=== PATIENT | female | born 1960 | race Caucasian/White ===

== ENCOUNTER 2018-09-17 21:25 | Emergency (ER) | payer MEDICARE, MEDICAID ==
[~2018-09-17] VITALS: Ht 167.6 cm; Wt 68.0 kg
[~2018-09-17 21:25] MED LIST: ALBU18HF2 INH; ALBU6.7H INH; ALBU8.5H4 IH; AZIT250T PO; DIPH25CA83 PO; DOXY100C76 PO; DOXY50CA2 PO; ESOM20CA PO; GABA-330 PO; GUAI120015 PO; GUAI1TBM19 PO; NAPR-56 PO; ONDA4TAB59 PO; PHEN-786 PO; PSEU-259 PO; TRAZ-91 PO
[2018-09-17 21:31] VITALS: BP 154/97
[2018-09-17] MEDS ORDERED: GUAI473S11 PO (21:47)
[2018-09-17] MEDS ORDERED: ALBU8HFA PO (21:47)
== END 2018-09-17 22:13 | disposition home or self-care (01) ==
LOC: ER 21:26
DX: J20.9 Acute bronchitis, unspecified (principal); J44.9 Chronic obstructive pulmonary disease, unspecified; K21.9 Gastro-esophageal reflux disease without esophagitis; F15.90 Other stimulant use, unspecified, uncomplicated; Z90.49 Acquired absence of other specified parts of digestive tract; Z98.890 Other specified postprocedural states; Z87.891 Personal history of nicotine dependence; Z86.14 Personal history of Methicillin resistant Staphylococcus aureus infection; Z59.0 Homelessness; Z88.0 Allergy status to penicillin; Z79.899 Other long term (current) drug therapy
CPT/HCPCS: 99283

== ENCOUNTER 2018-11-16 10:02 | Emergency (ER) | payer MEDICARE, MEDICAID ==
[~2018-11-16] VITALS: Ht 170.2 cm; Wt 59.1 kg
[2018-11-16 10:15] VITALS: BP 156/96
[2018-11-16] MEDS ORDERED: CLIN150C2 PO (11:53)
[2018-11-16] MEDS ORDERED: BACI1PAC7 TP (11:53)
== END 2018-11-16 12:00 | disposition home or self-care (01) ==
LOC: ER 10:03
DX: J34.0 Abscess, furuncle and carbuncle of nose (principal); J44.9 Chronic obstructive pulmonary disease, unspecified; F12.90 Cannabis use, unspecified, uncomplicated; K21.9 Gastro-esophageal reflux disease without esophagitis; Z86.19 Personal history of other infectious and parasitic diseases; Z86.14 Personal history of Methicillin resistant Staphylococcus aureus infection; Z86.69 Personal history of other diseases of the nervous system and sense organs; Z90.49 Acquired absence of other specified parts of digestive tract; Z98.890 Other specified postprocedural states; Z59.0 Homelessness; Z88.0 Allergy status to penicillin; Z79.2 Long term (current) use of antibiotics; Z79.899 Other long term (current) drug therapy
CPT/HCPCS: 99283

== ENCOUNTER 2020-05-04 15:26 | Emergency (ER) | payer MEDICARE, MEDICAID ==
[~2020-05-04] VITALS: Ht 167.6 cm; Wt 65.9 kg
[~2020-05-04 15:26] MED LIST changes: -ALBU6.7H INH; +ALBU6.7H9 INH
[2020-05-04 15:33] VITALS: BP 163/106
[2020-05-04] MEDS ORDERED: SULF1TAB49 PO (15:59)
[2020-05-07] MEDS ORDERED: BACDS PO (04:26)
[2020-05-07] MEDS ORDERED: IBUP-1984 PO (04:29)
[2020-05-07] MEDS ORDERED: GABA300C PO (08:39)
[2020-05-09] MEDS ORDERED: CLIN-5 PO (09:47)
[2020-05-09] MEDS ORDERED: HYDR-4383 PO (09:48)
== END 2020-05-04 16:40 | disposition home or self-care (01) ==
LOC: ER 15:26
DX: S60.321A Blister (nonthermal) of right thumb, initial encounter (principal); M79.644 Pain in right finger(s); M79.89 Other specified soft tissue disorders; J45.909 Unspecified asthma, uncomplicated; J44.9 Chronic obstructive pulmonary disease, unspecified; K21.9 Gastro-esophageal reflux disease without esophagitis; F32.9 Major depressive disorder, single episode, unspecified; F15.90 Other stimulant use, unspecified, uncomplicated; Z86.69 Personal history of other diseases of the nervous system and sense organs; Z86.19 Personal history of other infectious and parasitic diseases; Z86.14 Personal history of Methicillin resistant Staphylococcus aureus infection; Z90.89 Acquired absence of other organs; Z98.890 Other specified postprocedural states; Z59.0 Homelessness; Z88.0 Allergy status to penicillin; Z79.2 Long term (current) use of antibiotics; Z79.899 Other long term (current) drug therapy; X58.XXXA Exposure to other specified factors, initial encounter; Y93.89 Activity, other specified; Y92.89 Other specified places as the place of occurrence of the external cause; Y99.8 Other external cause status
CPT/HCPCS: 10160; 99284

== ENCOUNTER 2020-05-25 14:16 | Emergency (ER) | payer MEDICARE, MEDICAID ==
[~2020-05-25] VITALS: Ht 167.6 cm; Wt 60.0 kg
[~2020-05-25 14:16] MED LIST changes: -ALBU18HF2 INH; -ALBU6.7H9 INH; -ALBU8.5H4 IH; -AZIT250T PO; -DIPH25CA83 PO; -DOXY100C76 PO; -DOXY50CA2 PO; -ESOM20CA PO; -GABA-330 PO; +GABA300C PO; -GUAI120015 PO; -GUAI1TBM19 PO; +HYDR-4383 PO; +IBUP-1984 PO; -NAPR-56 PO; -ONDA4TAB59 PO; -PHEN-786 PO; -PSEU-259 PO; -TRAZ-91 PO
[2020-05-25 14:23] VITALS: BP 149/92
[2020-05-25] MEDS ORDERED: ERYT1OIN6 RIGHTEYE (14:45)
== END 2020-05-25 14:51 | disposition home or self-care (01) ==
LOC: ER 14:16
DX: H00.012 Hordeolum externum right lower eyelid (principal); R10.84 Generalized abdominal pain; J45.909 Unspecified asthma, uncomplicated; J44.9 Chronic obstructive pulmonary disease, unspecified; K21.9 Gastro-esophageal reflux disease without esophagitis; F32.9 Major depressive disorder, single episode, unspecified; F15.90 Other stimulant use, unspecified, uncomplicated; Z86.69 Personal history of other diseases of the nervous system and sense organs; Z86.19 Personal history of other infectious and parasitic diseases; Z86.14 Personal history of Methicillin resistant Staphylococcus aureus infection; Z90.89 Acquired absence of other organs; Z98.890 Other specified postprocedural states; Z72.89 Other problems related to lifestyle; Z59.0 Homelessness; Z88.0 Allergy status to penicillin; Z79.2 Long term (current) use of antibiotics; Z79.899 Other long term (current) drug therapy
CPT/HCPCS: 99283

== ENCOUNTER 2020-06-04 16:36 | Emergency (ER) | payer MEDICARE, MEDICAID ==
[~2020-06-04] VITALS: Ht 167.6 cm; Wt 65.9 kg
[2020-06-04 17:29] LABS: BASOPHILS # (AUTO) 0.1 X10'3 (0-0.2); BASOPHILS % (AUTO) 1.1 % (0-1); EOSINOPHILS # (AUTO) 0.2 X10'3 (0-0.9); EOSINOPHILS % (AUTO) 2.6 % (0-6); HEMATOCRIT 40.3 % (35.0-45.0); HEMOGLOBIN 13.5 g/dl (12.0-16.0); LYMPHOCYTES % (AUTO) 25.8 % (21-51); MEAN CORPUSCULAR HEMOGLOBIN 29.1 PG (27.0-31.0); MEAN CORPUSCULAR HGB CONC 33.4 g/dL (33.0-36.5); MEAN CORPUSCULAR VOLUME 86.9 FL (78-98); MEAN PLATELET VOLUME 8.1 FL (7.4-10.4); MONOCYTES # (AUTO) 0.5 X10'3 (0-0.9); NEUTROPHILS # (AUTO) 4.8 X10'3 (1.8-7.7); NEUTROPHILS % (AUTO) 63.5 % (42-75); PLATELET COUNT 304 X10'3 (140-440); RED BLOOD COUNT 4.63 X10'6 (4.20-5.60); RED CELL DISTRIBUTION WIDTH 14.7 % (11.5-14.5); WHITE BLOOD COUNT 7.6 X10'3 (4.5-11.0)
[2020-06-04 17:44] LABS: ALANINE AMINOTRANSFERASE 21 U/L (12-78); ALBUMIN 3.8 G/DL (3.4-5.0); ALBUMIN/GLOBULIN RATIO 1.1 (1.1-1.5); ALKALINE PHOSPHATASE 93 IU/L (46-116); ANION GAP 8 (8-16); ASPARTATE AMINO TRANSFERASE 16 U/L (10-37); BILIRUBIN,TOTAL 0.3 MG/DL (0.1-1.0); BLOOD UREA NITROGEN 17 MG/DL (7-18); BUN/CREATININE RATIO 18.5 (6.6-38.0); CHLORIDE 107 MMOL/L (99-107); CREATININE 0.92 MG/DL (0.40-0.90); GLUCOSE 112 MG/DL (70-104); POTASSIUM 3.7 MMOL/L (3.5-5.1); SODIUM 141 MMOL/L (135-145); TOTAL CARBON DIOXIDE 26.3 MMOL/L (24-32); TOTAL PROTEIN 7.3 G/DL (6.4-8.2); eGFR 62 ML/MIN
[2020-06-04] MEDS ORDERED: LORazepam 2 mg/ml vial IV ONE (18:00)
[2020-06-04 18:21] LABS: D-DIMER 0.24 MG/L FEU (0-0.50)
[2020-06-04] MEDS ORDERED: CEPH250T PO (18:55)
[2020-06-04 19:07] VITALS: BP 143/90
== END 2020-06-04 19:13 | disposition home or self-care (01) ==
LOC: ER 16:36
DX: F41.9 Anxiety disorder, unspecified (principal); R06.02 Shortness of breath; R07.89 Other chest pain; R00.2 Palpitations; J44.9 Chronic obstructive pulmonary disease, unspecified; K21.9 Gastro-esophageal reflux disease without esophagitis; F32.9 Major depressive disorder, single episode, unspecified; F15.90 Other stimulant use, unspecified, uncomplicated; Z86.69 Personal history of other diseases of the nervous system and sense organs; Z86.14 Personal history of Methicillin resistant Staphylococcus aureus infection; Z90.89 Acquired absence of other organs; Z90.49 Acquired absence of other specified parts of digestive tract; Z59.0 Homelessness; Z88.0 Allergy status to penicillin; Z79.899 Other long term (current) drug therapy
CPT/HCPCS: 36415; 71045; 80053; 83880; 84484; 85025; 85379; 93005; 96374; 99285; J2060

== ENCOUNTER 2020-09-20 17:13 | Emergency (ER) | payer MEDICARE, MEDICAID ==
[~2020-09-20] VITALS: Ht 167.6 cm; Wt 70.0 kg
[2020-09-20 17:17] VITALS: BP 137/117
[2020-09-20] MEDS ORDERED: DOXYCYCLINE 100MG CAPSULE PO STA (18:26)
[2020-09-20] MEDS ORDERED: mupirocin 2% ointment 22GM TP STA (18:26)
[2020-09-20] MEDS ORDERED: DOXY100C2 PO (18:32)
== END 2020-09-20 19:13 | disposition home or self-care (01) ==
LOC: ER 17:13
DX: L08.89 Other specified local infections of the skin and subcutaneous tissue (principal); F15.90 Other stimulant use, unspecified, uncomplicated; I10 Essential (primary) hypertension; J44.9 Chronic obstructive pulmonary disease, unspecified; K21.9 Gastro-esophageal reflux disease without esophagitis; Z86.14 Personal history of Methicillin resistant Staphylococcus aureus infection; Z86.69 Personal history of other diseases of the nervous system and sense organs; Z90.49 Acquired absence of other specified parts of digestive tract; Z98.891 History of uterine scar from previous surgery; Z90.89 Acquired absence of other organs; Z72.89 Other problems related to lifestyle; Z88.0 Allergy status to penicillin; Z79.2 Long term (current) use of antibiotics; Z79.899 Other long term (current) drug therapy
CPT/HCPCS: 99283

== ENCOUNTER 2021-10-30 17:03 | Emergency (ER) | payer MEDICARE, MEDICAID ==
[~2021-10-30] VITALS: Ht 167.6 cm; Wt 70.0 kg
[2021-10-30 17:26] VITALS: BP 160/121
== END 2021-10-30 20:28 | disposition left against medical advice (07) ==
LOC: EDUNIT# 17:03 → ER 17:06
DX: S41.152A Open bite of left upper arm, initial encounter (principal); Z53.21 Procedure and treatment not carried out due to patient leaving prior to being seen by health care provider; W64.XXXA Exposure to other animate mechanical forces, initial encounter; Y93.89 Activity, other specified; Y92.89 Other specified places as the place of occurrence of the external cause; Y99.8 Other external cause status

== ENCOUNTER 2022-05-07 16:38 | Emergency (ER) | payer MEDICARE, MEDICAID ==
[~2022-05-07] VITALS: Ht 162.6 cm; Wt 54.5 kg
[2022-05-07 16:52] VITALS: BP 155/110
[2022-05-07] MEDS ORDERED: LIDOcaine 1% W/epiNEPHrine 1:100,000 20ml vial SQ ONE (16:55)
[2022-05-07] MEDS ORDERED: TETanus/Pertussis (Acell)/Diphther VAC/PF (Tdap-Adult) 0.5ml syringe IMVAC ONE (16:55)
[2022-05-07] MEDS ORDERED: acetaminophen 325mg tablet PO ONE (19:45)
[2022-05-13] MEDS ORDERED: ACET-1008 PO (14:50)
[2022-05-13] MEDS ORDERED: IBUP-1984 PO (14:50)
[2022-05-13] MEDS ORDERED: LINE600T14 PO ×2 (15:17)
[2022-05-13] MEDS ORDERED: RIFA200T2 PO ×2 (16:46)
[2022-05-13] MEDS ORDERED: LEVO500T90 PO (16:46)
[2022-05-13] MEDS ORDERED: SULF1TAB49 PO (17:01)
== END 2022-05-07 22:12 | disposition home or self-care (01) ==
LOC: ER 16:39
DX: S51.812A Laceration without foreign body of left forearm, initial encounter (principal); J44.9 Chronic obstructive pulmonary disease, unspecified; F15.90 Other stimulant use, unspecified, uncomplicated; K21.9 Gastro-esophageal reflux disease without esophagitis; Z86.19 Personal history of other infectious and parasitic diseases; Z86.14 Personal history of Methicillin resistant Staphylococcus aureus infection; Z90.49 Acquired absence of other specified parts of digestive tract; Z72.89 Other problems related to lifestyle; Z59.00 Homelessness unspecified; Z98.891 History of uterine scar from previous surgery; Z88.0 Allergy status to penicillin; Z79.899 Other long term (current) drug therapy; W01.198A Fall on same level from slipping, tripping and stumbling with subsequent striking against other object, initial encounter; Y93.01 Activity, walking, marching and hiking; Y92.89 Other specified places as the place of occurrence of the external cause; Y99.8 Other external cause status
CPT/HCPCS: 12002; 90471; 90715; 99283; J7030; A6258; A6449

== ENCOUNTER 2022-06-05 20:08 | Emergency (ER) | payer MEDICARE, MEDICAID ==
[~2022-06-05] VITALS: Ht 167.6 cm; Wt 63.6 kg
[~2022-06-05 20:08] MED LIST changes: -GABA300C PO; -HYDR-4383 PO; -IBUP-1984 PO; +LEVO-65 PO; +SULF1TAB49 PO
[2022-06-05 20:49] LABS: BASOPHILS % (AUTO) 0.4 % (0-1); EOSINOPHILS # (AUTO) 0.3 X10'3 (0-0.9); EOSINOPHILS % (AUTO) 2.6 % (0-6); HEMATOCRIT 42.7 % (35.0-45.0); HEMOGLOBIN 14.5 g/dl (12.0-16.0); LYMPHOCYTES # (AUTO) 2.1 X10'3 (1.1-4.8); LYMPHOCYTES % (AUTO) 20.8 % (21-51); MEAN CORPUSCULAR HEMOGLOBIN 28.5 PG (27.0-31.0); MEAN PLATELET VOLUME 7.6 FL (7.4-10.4); MONOCYTES # (AUTO) 0.9 X10'3 (0-0.9); MONOCYTES % (AUTO) 8.3 % (2-12); NEUTROPHILS # (AUTO) 6.9 X10'3 (1.8-7.7); NEUTROPHILS % (AUTO) 67.9 % (42-75); PLATELET COUNT 356 X10'3 (140-440); RED BLOOD COUNT 5.09 X10'6 (4.20-5.60); RED CELL DISTRIBUTION WIDTH 14.7 % (11.5-14.5); WHITE BLOOD COUNT 10.2 X10'3 (4.5-11.0)
[2022-06-05 20:55] LABS: CLARITY,URINE CLEAR (Clear); COLOR,URINE YELLOW (Yellow); GLUCOSE, URINE NEGATIVE (Neg); KETONES,URINE NEGATIVE (Neg); LEUKOCYTE ESTERASE ,URINE NEGATIVE (Neg); NITRITES, URINE NEGATIVE (Neg); OCCULT BLOOD,URINE NEGATIVE (Neg); PROTEIN,URINE NEGATIVE (Neg); UROBILINOGEN,URINE 0.2 E.U/dL (0.2-1.0)
[2022-06-05 21:05] LABS: ALANINE AMINOTRANSFERASE 26 U/L (12-78); ALBUMIN 3.8 G/DL (3.4-5.0); ALKALINE PHOSPHATASE 112 IU/L (46-116); ANION GAP 13 (8-16); ASPARTATE AMINO TRANSFERASE 24 U/L (10-37); BILIRUBIN,TOTAL 0.4 MG/DL (0.1-1.0); BLOOD UREA NITROGEN 26 MG/DL (7-18); CALCIUM 9.4 MG/DL (8.5-10.1); CHLORIDE 104 MMOL/L (99-107); GLUCOSE 123 MG/DL (70-104); LIPASE 95 U/L (73-393); POTASSIUM 3.4 MMOL/L (3.5-5.1); SODIUM 140 MMOL/L (135-145); TOTAL CARBON DIOXIDE 22.9 MMOL/L (24-32); TOTAL PROTEIN 7.5 G/DL (6.4-8.2); eGFR 41 ML/MIN
[2022-06-05 21:07] LABS: UA COLLECTION TYPE STRAIGHT CATH
[2022-06-05] MEDS ORDERED: lactulose 20gm/30ml cup PO ONE (22:30)
[2022-06-05] MEDS ORDERED: magnesium hydroxide 30ml (MOM) UD suspension PO ONE (22:30)
[2022-06-05] MEDS ORDERED: ketorolac trometh inj. 60 MG/2 ML VIAL IM ONE (23:00)
[2022-06-05] MEDS ORDERED: normal saline 1000ML IV soln IVB ONE (23:35)
[2022-06-06 02:03] VITALS: BP 112/75
--- NOTE | 2022-06-06 02:15 | NUR ---
PT UNCOOPERATIVE W/VS MONITOR. REMOVES EQUIPMENT EVERY TIME NURSE LEAVES THE ROOM
== END 2022-06-06 06:03 | disposition home or self-care (01) ==
LOC: ER 20:08
DX: K59.00 Constipation, unspecified (principal); J44.9 Chronic obstructive pulmonary disease, unspecified; K21.9 Gastro-esophageal reflux disease without esophagitis; F32.A Depression, unspecified; I10 Essential (primary) hypertension; Z90.49 Acquired absence of other specified parts of digestive tract; F12.10 Cannabis abuse, uncomplicated; Z59.00 Homelessness unspecified; Z88.0 Allergy status to penicillin; Z79.899 Other long term (current) drug therapy; Z79.2 Long term (current) use of antibiotics
CPT/HCPCS: 36415; 74176; 80053; 81003; 83690; 85025; 96360; 96361; 96372; 99284; C1758; J1885; J7030; A4314; A4338

== ENCOUNTER 2022-06-07 07:36 | Emergency (ER) | payer MEDICARE, MEDICAID ==
[~2022-06-07] VITALS: Ht 167.6 cm; Wt 63.6 kg
[2022-06-07 07:39] VITALS: BP 129/84
[2022-06-07] MEDS ORDERED: normal saline 1000ML IV soln IVB ONE (08:00)
[2022-06-07 08:25] LABS: BASOPHILS % (AUTO) 0.1 % (0-1); EOSINOPHILS % (AUTO) 0.1 % (0-6); HEMATOCRIT 41.6 % (35.0-45.0); HEMOGLOBIN 13.7 g/dl (12.0-16.0); MEAN CORPUSCULAR HGB CONC 32.9 g/dL (33.0-36.5); MEAN CORPUSCULAR VOLUME 85.3 FL (78-98); MEAN PLATELET VOLUME 8.2 FL (7.4-10.4); MONOCYTES % (AUTO) 11.7 % (2-12); NEUTROPHILS # (AUTO) 13.9 X10'3 (1.8-7.7); NEUTROPHILS % (AUTO) 82.1 % (42-75); PLATELET COUNT 220 X10'3 (140-440); RED BLOOD COUNT 4.88 X10'6 (4.20-5.60); RED CELL DISTRIBUTION WIDTH 14.9 % (11.5-14.5); WHITE BLOOD COUNT 16.9 X10'3 (4.5-11.0)
[2022-06-07 08:51] LABS: ALANINE AMINOTRANSFERASE 30 U/L (12-78); ALBUMIN 3.2 G/DL (3.4-5.0); ALBUMIN/GLOBULIN RATIO 0.9 (1.1-1.5); ALKALINE PHOSPHATASE 86 IU/L (46-116); ANION GAP 11 (8-16); ASPARTATE AMINO TRANSFERASE 30 U/L (10-37); BILIRUBIN,TOTAL 0.6 MG/DL (0.1-1.0); BLOOD UREA NITROGEN 39 MG/DL (7-18); BUN/CREATININE RATIO 30.5 (6.6-38.0); CALCIUM 8.6 MG/DL (8.5-10.1); CHLORIDE 105 MMOL/L (99-107); CREATININE 1.28 MG/DL (0.40-0.90); GLUCOSE 108 MG/DL (70-104); MAGNESIUM 2.4 MG/DL (1.5-2.4); POTASSIUM 3.6 MMOL/L (3.5-5.1); SODIUM 137 MMOL/L (135-145); TOTAL CARBON DIOXIDE 20.8 MMOL/L (24-32); TOTAL PROTEIN 6.8 G/DL (6.4-8.2); eGFR 42 ML/MIN
--- NOTE | 2022-06-07 10:42 | NUR ---
Awaiting social work program coordinator consult.
== END 2022-06-07 11:48 | disposition home or self-care (01) ==
LOC: ER 07:36
DX: R19.7 Diarrhea, unspecified (principal); I10 Essential (primary) hypertension; J44.9 Chronic obstructive pulmonary disease, unspecified; F15.20 Other stimulant dependence, uncomplicated; K21.9 Gastro-esophageal reflux disease without esophagitis; Z59.00 Homelessness unspecified; Z88.0 Allergy status to penicillin; Z98.890 Other specified postprocedural states
CPT/HCPCS: 36415; 80053; 83735; 85025; 99283; J7030

== ENCOUNTER 2022-09-30 12:21 | Emergency (ER) | payer MEDICARE, MEDICAID ==
[~2022-09-30] VITALS: Ht 167.6 cm; Wt 65.0 kg
[2022-09-30 12:38] VITALS: BP 155/104
[2022-09-30] MEDS ORDERED: dexamethasone sod phosphate 10mg/ml inj PO STA (14:45)
[2022-09-30] MEDS ORDERED: AZIT-83 PO (15:48)
[2022-09-30] MEDS ORDERED: BENZ-38 PO (15:48)
[2022-09-30] MEDS ORDERED: azithromycin 250mg tablet PO ONE (15:50)
== END 2022-09-30 16:08 | disposition home or self-care (01) ==
LOC: ER 12:22
DX: J20.9 Acute bronchitis, unspecified (principal); K21.9 Gastro-esophageal reflux disease without esophagitis; I10 Essential (primary) hypertension; Z86.14 Personal history of Methicillin resistant Staphylococcus aureus infection; F32.A Depression, unspecified; Z88.0 Allergy status to penicillin; Z79.899 Other long term (current) drug therapy
CPT/HCPCS: 71045; 99283; J1100

== ENCOUNTER 2024-06-12 19:07 | Emergency (ER) | payer MEDICARE, MEDICAID ==
[~2024-06-12] VITALS: Ht 167.6 cm; Wt 62.7 kg
[2024-06-12 19:16] VITALS: BP 147/85; PULSE 104; TEMP 98.3; O2SAT 97
[2024-06-12 21:39] VITALS: RESP 15
[2024-06-12] MEDS: ketorolac trometh 15mg/ml vial 15 MG/ML ML IM ONE (21:39)
[2024-06-12] MEDS: HYDROcodone/acetaminophen 5mg/325mg tablet PO ONE (21:40)
== END 2024-06-12 21:51 | disposition home or self-care (01) ==
LOC: ER 19:08
DX: M25.572 Pain in left ankle and joints of left foot (principal); F15.90 Other stimulant use, unspecified, uncomplicated; I10 Essential (primary) hypertension; J45.909 Unspecified asthma, uncomplicated; J44.9 Chronic obstructive pulmonary disease, unspecified; K21.9 Gastro-esophageal reflux disease without esophagitis; F32.A Depression, unspecified; Z88.0 Allergy status to penicillin; Z90.49 Acquired absence of other specified parts of digestive tract; Z98.890 Other specified postprocedural states; Z59.00 Homelessness unspecified
CPT/HCPCS: 73610; 96372; 99283; J1885

== ENCOUNTER 2024-08-02 07:29 | Emergency (ER) | payer MEDICARE, MEDICAID ==
[~2024-08-02] VITALS: Ht 167.6 cm; Wt 68.0 kg
[2024-08-02 07:49] VITALS: BP 152/79; PULSE 84; RESP 16; O2SAT 97
[2024-08-02] MEDS ORDERED: ipratropium/albuterol 3ml nebule NEB PRN (08:30)
[2024-08-02] MEDS ORDERED: BENZ-38 PO (09:37)
[2024-08-02 09:43] VITALS: TEMP 98.1
== END 2024-08-02 09:45 | disposition home or self-care (01) ==
LOC: ER 07:29
DX: R05.3 Chronic cough (principal); J44.89 Other specified chronic obstructive pulmonary disease; K21.9 Gastro-esophageal reflux disease without esophagitis; I10 Essential (primary) hypertension; Z88.0 Allergy status to penicillin; Z90.49 Acquired absence of other specified parts of digestive tract; Z90.89 Acquired absence of other organs
CPT/HCPCS: 71045; 99283

== ENCOUNTER 2024-09-22 08:04 | Emergency (ER) | payer MEDICARE, MEDICAID ==
[~2024-09-22] VITALS: Ht 167.6 cm; Wt 67.7 kg
[2024-09-22 08:08] VITALS: TEMP 97.3
[2024-09-22 08:59] LABS: STREP A SCREEN NEGATIVE (Neg)
[2024-09-22] MEDS ORDERED: ALBU8HFA IH (09:08)
[2024-09-22] MEDS ORDERED: PRED20TA PO (09:08)
[2024-09-22] MEDS ORDERED: AZIT500T2 PO (09:08)
[2024-09-22 09:21] VITALS: BP 170/89; PULSE 78; RESP 20; O2SAT 94
[2024-09-22] MEDS: predniSONE 20 mg tablet PO ONE (09:26)
[2024-09-22] MEDS: azithromycin 250mg tablet PO ONE (09:26)
== END 2024-09-22 09:50 | disposition home or self-care (01) ==
LOC: ER 08:05
DX: J20.9 Acute bronchitis, unspecified (principal); J44.0 Chronic obstructive pulmonary disease with (acute) lower respiratory infection; F17.200 Nicotine dependence, unspecified, uncomplicated; I10 Essential (primary) hypertension; K21.9 Gastro-esophageal reflux disease without esophagitis; F32.A Depression, unspecified; F15.90 Other stimulant use, unspecified, uncomplicated; F19.11 Other psychoactive substance abuse, in remission; Z20.822 Contact with and (suspected) exposure to COVID-19; Z88.0 Allergy status to penicillin; Z90.49 Acquired absence of other specified parts of digestive tract; Z90.89 Acquired absence of other organs; Z98.890 Other specified postprocedural states
CPT/HCPCS: 36415; 71045; 87081; 87811; 87880; 99284; J7512

== ENCOUNTER 2024-10-09 01:28 | Emergency (ER) | payer MEDICARE, MEDICAID ==
[~2024-10-09] VITALS: Ht 167.6 cm; Wt 70.4 kg
[~2024-10-09 01:28] MED LIST changes: +ALBU8HFA IH; -LEVO-65 PO; +PRED20TA PO; -SULF1TAB49 PO
[2024-10-09 01:31] VITALS: TEMP 97.9
[2024-10-09] MEDS ORDERED: LISI5TAB22 PO (01:36)
[2024-10-09] MEDS ORDERED: CEFU250T95 PO (01:36)
[2024-10-09] MEDS ORDERED: BENZ-38 PO (02:21)
[2024-10-09] MEDS: ipratropium/albuterol 3ml nebule NEB PRN (02:41)
[2024-10-09 02:43] VITALS: PULSE 78; RESP 20; O2SAT 93
[2024-10-09 02:47] VITALS: PULSE 73; RESP 20; O2SAT 99
[2024-10-09 03:13] VITALS: BP 144/83; PULSE 97; RESP 20; O2SAT 93
== END 2024-10-09 03:13 | disposition home or self-care (01) ==
LOC: ER 01:29
DX: J44.0 Chronic obstructive pulmonary disease with (acute) lower respiratory infection (principal); J20.9 Acute bronchitis, unspecified; I10 Essential (primary) hypertension; K21.9 Gastro-esophageal reflux disease without esophagitis; F32.A Depression, unspecified; F17.200 Nicotine dependence, unspecified, uncomplicated; F15.90 Other stimulant use, unspecified, uncomplicated; Z90.49 Acquired absence of other specified parts of digestive tract; Z90.89 Acquired absence of other organs; Z88.0 Allergy status to penicillin; Z59.00 Homelessness unspecified
CPT/HCPCS: 94640; 99283

== ENCOUNTER 2024-12-28 13:45 | Emergency (ER) | payer MEDICARE, MEDICAID ==
[~2024-12-28] VITALS: Ht 167.6 cm; Wt 70.0 kg
[~2024-12-28 13:45] MED LIST changes: +CEFU250T95 PO; +LISI5TAB22 PO
[2024-12-28 13:57] VITALS: BP 191/92; PULSE 78; RESP 16; O2SAT 95
[2024-12-28] MEDS ORDERED: CLIN-142 PO (14:48)
[2024-12-28] MEDS: clindamycin 150mg capsule PO ONE (15:49)
[2024-12-28] MEDS: ibuprofen tablet 400 MG TABLET PO ONE (15:49)
[2024-12-28 16:00] VITALS: TEMP 97.4
== END 2024-12-28 16:01 | disposition home or self-care (01) ==
LOC: ER 13:46
DX: L03.211 Cellulitis of face (principal); I10 Essential (primary) hypertension; J44.9 Chronic obstructive pulmonary disease, unspecified; F32.A Depression, unspecified; F15.90 Other stimulant use, unspecified, uncomplicated; Z88.0 Allergy status to penicillin; Z90.89 Acquired absence of other organs; Z98.890 Other specified postprocedural states
CPT/HCPCS: 99283

== ENCOUNTER 2025-02-18 13:09 | Emergency (ER) | payer MEDICARE, MEDICAID ==
[~2025-02-18] VITALS: Ht 167.6 cm; Wt 66.6 kg
[2025-02-18 13:11] VITALS: TEMP 97.1
--- NOTE | 2025-02-18 14:07 | Physician Documentation ---
History of Present Illness ~ Chief Complaint: Foreign body Stated Complaint: SPLINTERS COMING OUT OF LIP Time Seen by MD: 13:53 Primary Medical Doctor: JOSH FISHER This is a 64-year-old female who presents with �itching of lip� to left upper external lip, patient feels that she may have gotten a splinter in the area one year ago and believes it may be coming out, patient reports the itching began this morning. Patient reports no history of herpes simplex though reports history of psoriasis. Medication Reconciliation Allergies: Coded Allergies: Penicillins (Verified Allergy, Unknown, 02/18/25) Scheduled Cefuroxime Axetil (Cefuroxime), 1 TAB PO BID, (Reported) Lisinopril (Lisinopril), 1 TAB PO DAILY, (Reported) Prednisone* (Prednisone*), 3 TAB PO DAILY Scheduled PRN albuterol inhaler (Pro-Air Inhaler), 2 BOTTLE IH 5XD PRN for SOB or wheezing Past Medical History Past Medical History: Seizures, Hypertension, Asthma, COPD, GERD, Hepatitis C, Cellulitis, MRSA Abscess, Depression Past Surgical History: appendectomy, , tonsillectomy Patient History: FH: alcoholism FATHER Brother Paternal grandfather FH: brain cancer Brother FH: breast cancer Maternal grandmother FH: kidney cancer MOTHER Alcohol Use: Rarely Drug Use: methamphetamine Lives In: Homeless Review of Systems ROS Itching to lip as stated above in the HPI, otherwise all systems are reviewed and negative. Physical Exam Vital Signs: Temperature: 97.1, Source: Temporal, Heart Rate: 90, Respiratory Rate: 18, BP: 166/101, Pulse Oximetry: 98, Weight: 66.560 Physical Exam VITALS: Reviewed and as above. GENERAL: Alert, nontoxic appearing, no apparent distress. HEENT: No facial swelling RESPIRATORY: No increased work of breathing, no respiratory distress, speaking in full clear sentences SKIN: The skin of the upper left lip appears dry with some scaling and flaking, there is no evidence of a retained foreign body on inspection or palpation, nino thema, no induration, no fluctuance Progress Results/Orders Results/Orders Vital Signs 02/18/25 02/18/25 02/18/25 13:11 14:09 14:10 Temp 97.1 Pulse 90 90 90 Resp 18 17 17 B/P (MAP) 166/101 160/101 (120) 160/101 Pulse Ox 98 99 99 Medical Decision Making Findings This 64-year-old female presented with itching to her left upper external lip, patient felt as if there was a splinter coming out though there was no splinter or other foreign body observed on physical exam, of note the skin of the left per external lip was dry with some flaking though no erythema, swelling, or lesions. Believe the area is experiencing itching due to dried skin, patient is given home care instructions and return to care precautions which she verbalized understanding of. Remainder of physical exam was benign. Patient is appropriate for outpatient follow up Additional Comment Herpes simplex, cellulitis, allergic dermatitis, contact dermatitis, psoriasis, foreign body Departure Disposition: HOME / SELF CARE / HOMELESS Impression: Primary Impression: Itching Condition: Improved Additional Instructions: I did not see a splinter or other foreign body, the skin of this area appears dry, you may try an [id number] moisturizer or anti-itch medicine on this area but do not get it in her mouth. Please follow up with your primary care provider in the next few days. Please return to the emergency department for any new or worsening concerning symptoms. Referrals: NO PRIMARY CARE PROVIDER (PCP) Education Educated: Patient Educated regarding: diagnosis, treatment, prognosis, need for follow up Signature Scribe Signature: No scribe Attestation: The note accurately reflects work and decisions made by me.YAHAIRA Ward 02/19/25 00:58 ADEOLA DURAN February 18, 2025 14:07
[2025-02-18 14:10] VITALS: BP 160/101; PULSE 90; RESP 17; O2SAT 99
== END 2025-02-18 14:12 | disposition home or self-care (01) ==
LOC: ER 13:09
DX: L29.9 Pruritus, unspecified (principal); I10 Essential (primary) hypertension; J44.9 Chronic obstructive pulmonary disease, unspecified; F32.A Depression, unspecified; F15.90 Other stimulant use, unspecified, uncomplicated; Z88.0 Allergy status to penicillin; Z90.49 Acquired absence of other specified parts of digestive tract; Z90.89 Acquired absence of other organs
CPT/HCPCS: 99281